=== PATIENT | female | born 1975 | race Caucasian/White ===

== ENCOUNTER 2021-10-18 19:51 | Emergency (ER) | payer MEDICAID ==
[~2021-10-18] VITALS: Ht 167.6 cm; Wt 67.0 kg
[2021-10-18] MEDS ORDERED: KETOROLAC 60MG/2ML VIAL IM ONE (20:45)
[2021-10-18 21:44] VITALS: BP 127/90
[2021-10-18] MEDS ORDERED: IBUP-2029 MT (23:18)
== END 2021-10-18 23:38 | disposition home or self-care (01) ==
LOC: ER 19:51
DX: S13.9XXA Sprain of joints and ligaments of unspecified parts of neck, initial encounter (principal); Z88.2 Allergy status to sulfonamides; V89.2XXA Person injured in unspecified motor-vehicle accident, traffic, initial encounter; Y93.89 Activity, other specified; Y92.89 Other specified places as the place of occurrence of the external cause; Y99.8 Other external cause status
CPT/HCPCS: 70450; 72100; 72125; 96372; 99291; J1885